=== PATIENT | male | born 1960 | race Caucasian/White ===

== ENCOUNTER 2025-04-11 19:36 | Inpatient (IN) | payer OTHER, SELFPAY ==
[2025-04-11 16:32] VITALS: BP 84/52
[2025-04-11 16:50] LABS: Glucose - Point of Care 98 mg/dl (70-99)
--- NOTE | 2025-04-11 16:59 | ED.GENMED ---
History of Present Illness
General
Chief Complaint: Breathing Problem
Source: patient, records and ambulance crew
Exam Limitations: altered mental status
Time Seen by Provider: 04/11/25 16:37
Nursing documentation reviewed up to this point in time: agreed with
History of Present Illness
History of Present Illness:
64-year-old male from formerly [facility] facility presents for respiratory distress onset 11:30 AM requiring oxygen, here is tachypneic tachycardic hypothermic records reviewed he is DNR DNI comfort measures only per his advanced directive,
Has no prior records in the hospital, unable to identify a next of kin who through his intermediate transfer record
Past History
Past History
ED Past Medical History: Other
Social History
Tobacco: Other
Alcohol: Other
Drug: Other
Personal: Other
Living: intermediate
Employment: Not employed
Family History
Family History: Unable to obtain (Nonverbal)
Review of Systems
Review of Systems
Unable to obtain full review of systems at this time due to: due to acuity
Other source history: transfer record
Phy Exam
Physical Exam
Physical Exam:
Physical Exam
General: Ill-appearing male
Neck: Dry lips
Heart: Regular
Lungs: Rhonchi right greater than left
Abdomen: Soft
Neuro: Obtunded
Skin: no rash
Psychiatric: Unable to assess
Extremities: Edema is present
Scores
Heart Failure Risk
Heart Failure Risk Score: Not Applicable
Sepsis
Sepsis Screening
Sepsis Assessment: Sepsis Ruled Out
Sepsis Screen
Sepsis Screen: Sepsis Ruled Out
Date: 04/11/25
Time: 17:25
Course
Orders/Labs/Results
Orders:
Orders
04/11/25 16:39
Case Management Consult ONCE
Case Management Consult: Hospice
Hospice: Evaluation and treat
Morphine Sulfate 4 mg IV NOW STA
Vital Signs
Initial and Last Documented VS:
Initial Vital Signs
Pulse Resp BP Pulse Ox
77 30 84/52 99
04/11/25 16:32 04/11/25 16:32 04/11/25 16:32 04/11/25 16:32
Last Documented Vital Signs
Pulse Resp BP Pulse Ox
77 30 84/52 99
04/11/25 16:32 04/11/25 16:32 04/11/25 16:32 04/11/25 17:00
MDM/Problems Addressed
Differential Diagnosis Includes:
Sepsis aspiration heart failure
MDM/Problems Addressed:
Respiratory distress
Chronic conditions affecting care: Neurological disorder
Acute Exacerbation and/or Progression of Chronic Illness: Neurological disorder
*Pulse Oximetry
SaO2: 99
Oxygen Mode of Delivery: Non-rebreather mask
Patient hypoxic: yes
*Senior Game [employer]er Interpretation
Rate: tachycardiac
Interpretation: normal
Heart Rate: 88
Rhythm: sinus
*Critical Care Note
Total Time (30-74mins, 75-104mins- exclusive of procedures): Not Applicable
Update Note
Update Note:
5:25 PM update reviewed with case maker they were able to contact family, they are in room
ED Attending Note
-
Portions of this chart may have been created with voice recognition software.� Occasional wrong word or��sound alike� substitutions may have occurred due to the inherent limitations of voice recognition software.
Discharge Plan
Departure
Patient Disposition: Admit
Date of Disposition: 04/11/25
Time of Disposition: 17:25
Admit to: Med/Surg
Presentation/result/management discussed w/ accepting MD/DO: Hospitalist
Patient with high blood pressure during this ER visit?: No
Condition: Serious
Covid-19: Not Applicable
Discharge Problem:
Need for comfort care
Discharge Date and Time
Print Language: YEMENI
[2025-04-11] MEDS: MORPHINE SULFATE 4 MG IV ×2 (17:07→18:40)
--- NOTE | 2025-04-11 17:25 | EDCM ---
Received consult, I attempted to speak with pt but he recently received Morphine. I spoke to his nurse Sydnie, pt did answer simple yes or no questions when he arrived. Was tachypneic, was placed on non rebreather. Reviewed paperwork from [facility], no family information sent with pt.
I called [facility] and spoke to Maggie, the nursing wood mill supervisor. She gave me contact numbers for family, daughter Ayanna Dickey [phone], MIREILLE Bradshaw [phone], and daughter Maribell [phone].
I called and spoke to Ayanna, she told me pt's brother is on his way and should be here very shortly. I informed her of pt's current condition and encouraged her to come to the hospital. She was tearful, confirmed she is coming and will notify
other family members.
Dr Velazquez and Sydnie updated. Pt's brother arrived, Dr Velazquez to speak with him. Pt currently with agonal breathing, moaning, placed on nasal cannula.
CM will remain available if needed.
[2025-04-11 18:27] VITALS: BP 156/126
[2025-04-11 18:28] VITALS: BP 172/129
--- NOTE | 2025-04-11 18:30 | HPS.HSE ---
Family Physician
-
Family Physician: Roland Ríos
Chief Complaint
-
respiratory distress
History of Present Illness
Patient is a 64-year-old male with past medical history significant for hypertension, hyperlipidemia, hypothyroidism, type 2 diabetes, chronic kidney disease IIIa, BPH and Hx CVA who presented to [facility] ED for evaluation of respiratory distress.
Patient arrived from facility with POLST form requested DNR/DNI and comfort measures only. Brother arrived and stated that him and patient have had recent discussions regarding this and patient adamanatly did not want to be kept alive. Patient
currently minimally responsive to verbal stimuli, hypertensive and tachypneic at evaluation.
Medical History
Past Medical History
Past Medical History: Reports Other
Additional Past Medical History:
hypertension
hyperlipidemia
hypothyroidism
type 2 diabetes
chronic kidney disease IIIa
BPH
Hx CVA
Past Surgical History: Reports None
Social History
Unable to obtain full social history at this time due to: Other (minimally responsive )
Family History
Family History: Not pertinent
Allergies / Home Medications
Allergies reflects when Allergies were last updated in [facility].
Home Medications with original date entered in [facility]
Allergy/Medication List:
Allergies
Allergy/AdvReac Type Severity Reaction Status Date / Time
No Known Allergies Allergy Verified 04/11/25 16:32
Home Medications
acetaminophen 325 mg tablet (Tylenol) 650 mg PO Q4HPRN PRN mild pain 04/11/25
atorvastatin 80 mg tablet (Lipitor) 80 mg PO HS 04/11/25
bisacodyl 10 mg rectal suppository (Dulcolax (bisacodyl)) 10 mg IA DAILYPRN PRN if no bm aftr mom 04/11/25
cefpodoxime 200 mg tablet 200 mg PO DAILY pna 04/11/25
clopidogrel 75 mg tablet (Plavix) 75 mg PO DAILY 04/11/25
levothyroxine 150 mcg tablet (Synthroid) 150 mcg PO DAILY 04/11/25
losartan 100 mg tablet 100 mg PO DAILY 04/11/25
magnesium hydroxide 400 mg/5 mL oral suspension (Milk of Magnesia) 2,400 mg PO DAILYPRN PRN if no bm by 3rd day 04/11/25
metformin 750 mg tablet 750 mg PO BID 04/11/25
miconazole nitrate 2 % topical powder 1 applic topical BID folds/karine area/buttock 04/11/25
nifedipine 30 mg tablet,extended release 24 hr 60 mg PO BID 04/11/25
pantoprazole 40 mg tablet,delayed release (Protonix) 40 mg PO DAILY 04/11/25
pregabalin 75 mg capsule (Lyrica) 75 mg PO HS 04/11/25
semaglutide 2 mg/dose (8 mg/3 mL) subcutaneous pen injector 2 mg SC KRAMER 04/11/25
sodium phosphates 19 gram-7 gram/118 mL enema (Fleet Enema) 118 ml IA DAILYPRN PRN if no bm aftr dulcolax 04/11/25
tamsulosin 0.4 mg capsule (Flomax) 0.4 mg PO DAILY 04/11/25
Review of Systems
-
Unable to obtain full review of systems at this time due to: Dementia
Physical Exam
Vital Signs
Vital Signs
Pulse Resp BP Pulse Ox
77 30 84/52 99
04/11/25 16:32 04/11/25 16:32 04/11/25 16:32 04/11/25 17:00
Physical Exam
General: Well Developed, Respiratory Distress and Appears Chronically Ill
HEENT: NormoCephalic and [place] Conjunctivae
Respiratory: Rhonchi and Other (labored respirations )
Cardiac: S1/S2 and Regular Rhythm
Breast: Deferred by me
GI: Soft, Non Tender and Non Distended
Genito-urinary: Deferred by me
Musculoskeletal: No Clubbing and No Cyanosis
Skin: Warm and IV/Catheter Site
Neuro: Sedated; No Awake
Impression/Plan
-
IMPRESSION/PLAN:
#respiratory distress
hypertensive, tachypneic, hypoxia
no workup done in ED r/t wishes for comfort care
POLST indicative of DNR/DNI, comfort measures, brother present and states recent conversations with patient who wanted nothing done to keep him alive if something happened
- Admit to med/surg
- Comfort measures only
- Hospice consult
#hypertension
#hyperlipidemia
#hypothyroidism
#type 2 diabetes
#chronic kidney disease IIIa
#BPH
#Hx CVA
*home medications stopped with comfort orders and inability to tolerate PO*
Code status: DNR/DNI
DVT prophylaxis: N/A
[2025-04-11 18:57] VITALS: BP 168/127
--- NOTE | 2025-04-11 19:08 | W.PN.UPDATE ---
Update Note
Progress Note Update
This note serves as an addendum to the H&P by tenter feeder ELSA�
Jennifer Webster
HPI
64M Res of [facility] , DNR , pw resp distress , CP and Hypoxic RF arrived on [facility] on 8L NC.
At ER: tachypneic tachycardic hypothermic. [facility] records reviewed he is DNR DNI comfort measures only per his advanced directive
Has no prior records in the hospital. Brother prersent
Morphine 4 mg x2 at ER for resp distreaa
PE:
chronically appearing male
Dry lips, dry OM
CVS> RRR
Resp: tyacypnic , rhonchi R > L
Benign abdomen
Neuro: Obtunded
Extremities: Edema +
BG 98
NO Prior hospitalist admission:
ASSESSMENT & PLAN
Apparent Hypoxic RF and Resp distress
NHR with chronic illnesses
Has preexisting advanced directives for DNR and comfort measures only
Obtunded
- c/w end of life care
- No blood work
- stop all OP Meds
- Initiated Rx appropriate for comfort measures
- inpatient Hospice care consult
DVT Px: NA
DNR
MS
--- NOTE | 2025-04-11 22:59 | W.PN.DEATH ---
Addendum entered and electronically signed by GERARDO Apodaca 04/11/25 23:16:
Spoke with Medina Smyth from the coronor's office and she released the body to the family. I updated the family a second time explaining to them about disposition of Mr. Galvan. They have decided to not return to view the body so he will [facility]
Original Note:
Pronouncement of
-
Called to see patient to pronounce.
No spontaneous heart tones or respirations noted.
Patient not responsive to verbal stimuli.
Patient is pronounced .
Time of : 21:30
Date of : 04/11/25
Cause of : respiratory failure
Family Notified: Yes
--- NOTE | 2025-04-12 00:14 | PTCARENOTE ---
GERARDO Apodaca called time of at 2130. GERARDO spoke to Pt's family. Олег Galvez RN spoke to Pt's family. RN called '[facility]'. RN and PCT completed post-mortem care. RN and PCT brought body to [facility].
== END 2025-04-12 00:18 | disposition expired | DRG 951 ==
LOC: 3 WEST ACU 19:36
PROVIDERS: ADMITTING PHYSICIAN Internal Medicine; EMERGENCY PHYSICIAN Emergency Medicine; FAMILY PHYSICIAN Internal Medicine
DX: Z51.5 Encounter for palliative care (principal); J96.91 Respiratory failure, unspecified with hypoxia; Z66 Do not resuscitate; E03.9 Hypothyroidism, unspecified; I12.9 Hypertensive chronic kidney disease with stage 1 through stage 4 chronic kidney disease, or unspecified chronic kidney disease; E11.22 Type 2 diabetes mellitus with diabetic chronic kidney disease; E78.5 Hyperlipidemia, unspecified; N18.31 Chronic kidney disease, stage 3a; N40.0 Benign prostatic hyperplasia without lower urinary tract symptoms; R68.0 Hypothermia, not associated with low environmental temperature; Z79.02 Long term (current) use of antithrombotics/antiplatelets; Z86.73 Personal history of transient ischemic attack (TIA), and cerebral infarction without residual deficits; Z79.84 Long term (current) use of oral hypoglycemic drugs; Z79.85 Long-term (current) use of injectable non-insulin antidiabetic drugs; Z79.899 Other long term (current) drug therapy; Z79.890 Hormone replacement therapy
CPT/HCPCS: 82962; 96374; 96376; 99285